=== PATIENT | female | born 1985 | race Caucasian/White ===

== ENCOUNTER 2018-12-22 00:56 | Emergency (ER) | payer MEDICAID ==
[~2018-12-22] VITALS: Ht 167.6 cm; Wt 45.4 kg
[2018-12-22 01:00] VITALS: BP_SYST 99
--- NOTE | 2018-12-22 01:00 | NUR ---
Patient to ER bed 5 to gown for evaluation. Side rails up. Report given to EDUARDO SANFORD.
--- NOTE | 2018-12-22 01:01 | NUR ---
Pt arrives with a wooden walking stick. Security notified and stick removed from pt.
--- NOTE | 2018-12-22 01:02 | NUR ---
Pt arrived via s ambulance c/o toothache,pt yelling and crying upon arrival asking for pain medicine,Pt came to nursing station and yelling staff,security called.Pt went back to bed and cont yelling and asking for pain medicine.Pt refused to answer any question and cont yelling .Unable to get any medical hx and allergy.Dr Montgomery notified.
--- NOTE | 2018-12-22 01:07 | NUR ---
Pt states that she's going home. Walking stick given back to pt by security. Pt then goes into ER 1 striking the curtain with the walking stick, nearly hitting the pt occupying the bed. Pt screaming "I need fucking pain relief now!" Pt also strikes nearby phlebotomy cart breaking 5 plastic trays on the cart. Pt removed from ER by security to hallway outside of ER near hospital entrance. Pt drops walking stick on floor. [employer] called.
--- NOTE | 2018-12-22 01:17 | NUR ---
Police officers from [facility] arrive. Situation explained to officers.
--- NOTE | 2018-12-22 01:26 | NUR ---
Pt LWBS in c/o peace officers.
== END 2018-12-22 01:26 | disposition left against medical advice (07) ==
LOC: SED 00:56
DX: K08.89 Other specified disorders of teeth and supporting structures (principal); Z53.21 Procedure and treatment not carried out due to patient leaving prior to being seen by health care provider

== ENCOUNTER 2019-03-05 20:09 | Emergency (ER) | payer MEDICAID ==
[~2019-03-05] VITALS: Ht 167.6 cm; Wt 45.4 kg
--- NOTE | 2019-03-05 20:09 | NUR ---
Patient to ER bed 03 to gown for evaluation. Side rails up. Report given to Phyllis SANFORD.
[2019-03-05 20:15] VITALS: BP_SYST 104
--- NOTE | 2019-03-05 20:15 | NUR ---
Pt AAOx4 BIB BLS c/o 12/17 L hip pain radiating to L shoulder x 3 days r/t hitting hip on bus bench. Pt able to ambulate with steady gait, no deformities/leg shortening present. No other injuries/complaints per pt/noted. Will continue to monitor.
--- NOTE | 2019-03-05 20:57 | NUR ---
ER Dr. Singletary at bedside examining patient.
[2019-03-05] MEDS ORDERED: KETOROLAC TROMETHAMINE 30 MG VIAL IM ONE (21:15)
--- NOTE | 2019-03-05 21:40 | NUR ---
PT denies toradol shot, ER made aware.
[2019-03-05] MEDS ORDERED: IBUPROFEN 400 MG TABLET PO ONE (21:45)
--- NOTE | 2019-03-05 22:15 | NUR ---
Medication was given, pt tolerated well. No adverse reaction, will continue to monitor.
--- NOTE | 2019-03-05 23:38 | NUR ---
PT given food, weather appropriate clothes, offered a ride and homeless packet.
[2019-03-05 23:45] VITALS: BP_SYST 104
--- NOTE | 2019-03-05 23:45 | NUR ---
Patient given written and verbal discharge instructions and verbalizes understanding. ER MD Dr. Singletary discussed with patient the results and treatment provided. Patient in stable condition. ID arm band removed. Rx of motrin given. Patient educated on pain management and to follow up with PMD. Pain Scale 0/10. Opportunity for questions provided and answered. Medication side effect fact sheet provided.
== END 2019-03-05 23:45 | disposition home or self-care (01) ==
LOC: SED 20:09
DX: M25.552 Pain in left hip (principal); G89.29 Other chronic pain; M54.5 Low back pain; F12.90 Cannabis use, unspecified, uncomplicated
CPT/HCPCS: 72170; 73502; 81025; 96372; 99283; J1885

== ENCOUNTER 2020-01-27 10:43 | Emergency (ER) | payer MEDICAID ==
[~2020-01-27] VITALS: Ht 167.6 cm; Wt 45.4 kg
--- NOTE | 2020-01-27 10:47 | NUR ---
Patient to ER bed 04 to gown for evaluation. Side rails up.
[2020-01-27 10:48] VITALS: BP_SYST 106
--- NOTE | 2020-01-27 10:50 | NUR ---
Patient presented to ER C/O weakness. Patient A&Ox4, BIB BLS, ambulatory, afebrile, skin pink & warm, denies pain, denies N/V/D. Patient states she has fatigue and weakness today.
--- NOTE | 2020-01-27 10:52 | NUR ---
ER Dr. Hernández at bedside examining patient.
--- NOTE | 2020-01-27 10:52 | NUR ---
Dr Hernández evaluating patient at bedside
[2020-01-27] MEDS ORDERED: NACL 0.9% 1,000 ML IV ONE (11:00)
[2020-01-27 11:21] LABS: BASOPHILS # (AUTO) 0.1 K/uL (0.0-0.2); EOSINOPHILS # (AUTO) 0.1 K/uL (0.0-0.4); EOSINOPHILS % (AUTO) 1.8 % (0.0-4.0); HEMATOCRIT 36.3 % (36-48); HEMOGLOBIN 11.8 g/dL (12.0-16.0); LYMPHOCYTES # (AUTO) 1.3 K/uL (1.0-5.5); MEAN CORPUSCULAR HEMOGLOBIN 29 pg (27-31); MEAN CORPUSCULAR HGB CONC 32 % (32-36); MEAN CORPUSCULAR VOLUME 91 fL (79.0-98.0); MONOCYTES # (AUTO) 0.4 K/uL (0.0-1.0); MONOCYTES % (AUTO) 6.1 % (1.7-9.3); NEUTROPHILS % (AUTO) 69.1 % (40.0-70.0); PLATELET COUNT (AUTO) 339 K/uL (130-430); RED CELL DISTRIBUTION WIDTH 13.2 % (9.0-15.0); WHITE BLOOD COUNT (AUTO) 5.8 K/uL (4.8-10.8)
[2020-01-27 11:24] LABS: CREATININE 0.67 mg/dL (0.55-1.30); POTASSIUM 3.5 mmol/L (3.5-5.1)
[2020-01-27 11:38] LABS: ALBUMIN 3.4 g/dL (3.4-4.8); TOTAL BILIRUBIN 0.4 mg/dL (0.0-1.0)
[2020-01-27 12:22] VITALS: BP_SYST 108
--- NOTE | 2020-01-27 12:24 | NUR ---
Patient given written and verbal discharge instructions and verbalizes understanding. ER MD discussed with patient the results and treatment provided. Patient in stable condition. ID arm band removed. IV catheter removed intact and dressing applied, no active bleeding. Patient educated on pain management and to follow up with PMD. Pain Scale . Opportunity for questions provided and answered. Medication side effect fact sheet provided.
== END 2020-01-27 12:24 | disposition home or self-care (01) ==
LOC: SED 10:43
DX: E86.0 Dehydration (principal); F17.200 Nicotine dependence, unspecified, uncomplicated
CPT/HCPCS: 36415; 80053; 85025; 96360; 99283; J7030

== ENCOUNTER 2020-01-28 13:41 | Emergency (ER) | payer MEDICAID ==
[~2020-01-28] VITALS: Ht 165.1 cm; Wt 52.2 kg
[2020-01-28 13:45] VITALS: BP_SYST 105
[2020-01-28] MEDS: NACL 0.9% 1,000 ML IV ONE (14:10)
[2020-01-28 15:18] VITALS: BP_SYST 105
== END 2020-01-28 15:15 | disposition home or self-care (01) ==
LOC: SED 13:41
DX: R42 Dizziness and giddiness (principal); F17.200 Nicotine dependence, unspecified, uncomplicated; F12.90 Cannabis use, unspecified, uncomplicated
CPT/HCPCS: 81002; 81025; 96360; 99283; J7030

== ENCOUNTER 2020-02-03 14:50 | Emergency (ER) | payer MEDICAID ==
[~2020-02-03] VITALS: Ht 167.6 cm; Wt 45.4 kg
[2020-02-03 14:53] VITALS: BP_SYST 101
[2020-02-03] MEDS: IBUPROFEN 400 MG TABLET PO ONE (15:34)
[2020-02-03 16:45] VITALS: BP_SYST 100
== END 2020-02-03 16:50 | disposition home or self-care (01) ==
LOC: SED 14:50
DX: R53.1 Weakness (principal); R51 Headache; F31.9 Bipolar disorder, unspecified; F12.90 Cannabis use, unspecified, uncomplicated
CPT/HCPCS: 99283

== ENCOUNTER 2020-02-04 09:16 | Emergency (ER) | payer MEDICAID ==
[~2020-02-04] VITALS: Ht 167.6 cm; Wt 45.4 kg
[2020-02-04 09:26] VITALS: BP_SYST 115
[2020-02-04 09:54] VITALS: BP_SYST 115
== END 2020-02-04 09:50 | disposition home or self-care (01) ==
LOC: SED 09:16
DX: H92.03 Otalgia, bilateral (principal); K08.89 Other specified disorders of teeth and supporting structures; F31.9 Bipolar disorder, unspecified; F20.9 Schizophrenia, unspecified
CPT/HCPCS: 99282

== ENCOUNTER 2020-03-03 14:36 | Emergency (ER) | payer MEDICAID ==
[~2020-03-03] VITALS: Ht 162.6 cm; Wt 45.4 kg
[2020-03-03 14:44] VITALS: BP_SYST 108
--- NOTE | 2020-03-03 14:45 | NUR ---
Patient to ER bed 3 to gown for evaluation. Side rails up. Report given to MARQUISE SANFORD.
--- NOTE | 2020-03-03 14:46 | NUR ---
Patient presented to ER C/O weakness. Patient BIB BLS AAOx4, afebrile, skin warm and pink, pain 6/10, denies N/V/D. Patient states she has weakness x2 hours.
--- NOTE | 2020-03-03 14:50 | NUR ---
NORTH Dunaway at bedside examining patient.
[2020-03-03 15:19] LABS: BASOPHILS # (AUTO) 0.1 K/uL (0.0-0.2); BASOPHILS % (AUTO) 1.1 % (0.0-2.0); EOSINOPHILS # (AUTO) 0.1 K/uL (0.0-0.4); EOSINOPHILS % (AUTO) 1.8 % (0.0-4.0); HEMATOCRIT 35.8 % (36-48); LYMPHOCYTES # (AUTO) 1.4 K/uL (1.0-5.5); LYMPHOCYTES % (AUTO) 21.1 % (20.5-51.5); MEAN CORPUSCULAR HEMOGLOBIN 31 pg (27-31); MEAN CORPUSCULAR HGB CONC 34 % (32-36); MEAN CORPUSCULAR VOLUME 91 fL (79.0-98.0); MONOCYTES # (AUTO) 0.4 K/uL (0.0-1.0); MONOCYTES % (AUTO) 5.8 % (1.7-9.3); NEUTROPHILS # (AUTO) 4.6 K/uL (1.8-7.7); NEUTROPHILS % (AUTO) 70.2 % (40.0-70.0); PLATELET COUNT (AUTO) 283 K/uL (130-430); RED BLOOD CELL COUNT(AUTO) 3.94 MIL/uL (4.2-6.2); RED CELL DISTRIBUTION WIDTH 13.4 % (9.0-15.0); WHITE BLOOD COUNT (AUTO) 6.5 K/uL (4.8-10.8)
[2020-03-03] MEDS: NACL 0.9% 1,000 ML IV ONE (15:19)
[2020-03-03] MEDS: ACETAMINOPHEN 500 MG TABLET PO ONE (15:20)
--- NOTE | 2020-03-03 15:20 | NUR ---
PT PROVIDED WITH URINE CUP, ABLE TO VOID. SPECIMEN SENT TO LAB
--- NOTE | 2020-03-03 15:20 | NUR ---
PT PRESENTS FROM HOME WITH C/O FEELING DIZZY AND WEAK. SHE REPORTS A HX OF ARTHRITIS WITH PAIN IN HER LOWER BACK AND RIGHT LEG. AAOX4, V/S STABLE
--- NOTE | 2020-03-03 15:20 | NUR ---
PT MEDICATED FOR PAIN WITH TYLENOL PER MD ORDER.
[2020-03-03] MEDS ORDERED: ACETAMINOPHEN 500 MG TABLET ONE (15:30)
--- NOTE | 2020-03-03 15:30 | NUR ---
XRAY AT THE BEDSIDE
[2020-03-03 15:38] LABS: CALCIUM 8.6 mg/dL (8.4-11.0); CREATININE 0.61 mg/dL (0.55-1.30); POTASSIUM 3.7 mmol/L (3.5-5.1)
[2020-03-03 15:44] LABS: ALBUMIN 3.6 g/dL (3.4-4.8); TOTAL BILIRUBIN 0.4 mg/dL (0.0-1.0)
[2020-03-03 16:00] LABS: BILIRUBIN,URINE NEGATIVE (NEGATIVE); BLOOD, URINE NEGATIVE (NEGATIVE); CLARITY/URINE CLEAR (CLEAR); COLOR,URINE YELLOW (YELLOW); GLUCOSE,URINE NEGATIVE (NEGATIVE); KETONES,URINE NEGATIVE (NEGATIVE); LEUKOCYTE ESTERASE ,URINE NEGATIVE (NEGATIVE); NITRITE, URINE NEGATIVE (NEGATIVE); PH,URINE 7.5 (5.0-8.0); PROTEIN URINE NEGATIVE (NEGATIVE); UROBILINOGEN,URINE 0.2 (0.2-1.0)
[2020-03-03 16:10] VITALS: BP_SYST 110
--- NOTE | 2020-03-03 16:10 | NUR ---
Patient given written and verbal discharge instructions and verbalizes understanding. ER MD discussed with patient the results and treatment provided. Patient in stable condition. ID arm band removed. NO Rx given. Patient educated on pain management and to follow up with PMD. Pain Scale 3/10. Opportunity for questions provided and answered. Medication side effect fact sheet provided.
== END 2020-03-03 16:10 | disposition home or self-care (01) ==
LOC: SED 14:36
DX: T67.5XXA Heat exhaustion, unspecified, initial encounter (principal); X58.XXXA Exposure to other specified factors, initial encounter; Y93.89 Activity, other specified; Y92.89 Other specified places as the place of occurrence of the external cause; Y99.8 Other external cause status
CPT/HCPCS: 36415; 71045; 80053; 81003; 85025; 96360; 99284; J7030

== ENCOUNTER 2020-03-19 09:29 | Emergency (ER) | payer MEDICAID, SELFPAY ==
[~2020-03-19] VITALS: Ht 162.6 cm; Wt 59.0 kg
--- NOTE | 2020-03-19 09:37 | NUR ---
Patient to ER bed 05 to gown for evaluation. Side rails up.
[2020-03-19 09:38] VITALS: BP_SYST 105
--- NOTE | 2020-03-19 09:40 | NUR ---
pt arrives via BLS d/t increasing abd pain and diarrhea x 1 wk. Pt is a poor historian d/t psychiatric problems. pt denies fever, CP.
--- NOTE | 2020-03-19 09:42 | NUR ---
ER at bedside examining patient.
--- NOTE | 2020-03-19 09:48 | NUR ---
lab at the bedside
--- NOTE | 2020-03-19 09:54 | NUR ---
UA collected and sent to the lab
[2020-03-19 10:02] LABS: BASOPHILS # (AUTO) 0.1 K/uL (0.0-0.2); BASOPHILS % (AUTO) 1.2 % (0.0-2.0); EOSINOPHILS # (AUTO) 0.2 K/uL (0.0-0.4); EOSINOPHILS % (AUTO) 3.7 % (0.0-4.0); HEMATOCRIT 38.7 % (36-48); LYMPHOCYTES # (AUTO) 1.3 K/uL (1.0-5.5); LYMPHOCYTES % (AUTO) 25.5 % (20.5-51.5); MEAN CORPUSCULAR HEMOGLOBIN 30 pg (27-31); MEAN CORPUSCULAR HGB CONC 34 % (32-36); MEAN CORPUSCULAR VOLUME 90 fL (79.0-98.0); MONOCYTES # (AUTO) 0.3 K/uL (0.0-1.0); MONOCYTES % (AUTO) 6.2 % (1.7-9.3); NEUTROPHILS # (AUTO) 3.2 K/uL (1.8-7.7); NEUTROPHILS % (AUTO) 63.4 % (40.0-70.0); PLATELET COUNT (AUTO) 299 K/uL (130-430); RED BLOOD CELL COUNT(AUTO) 4.29 MIL/uL (4.2-6.2); RED CELL DISTRIBUTION WIDTH 13.3 % (9.0-15.0); WHITE BLOOD COUNT (AUTO) 5.1 K/uL (4.8-10.8)
--- NOTE | 2020-03-19 10:10 | NUR ---
Patient transported to radiology via , accompanied by unit aide tech.
[2020-03-19 10:14] LABS: BILIRUBIN,URINE NEGATIVE (NEGATIVE); BLOOD, URINE 2+ (NEGATIVE); COLOR,URINE YELLOW (YELLOW); GLUCOSE,URINE NEGATIVE (NEGATIVE); KETONES,URINE NEGATIVE (NEGATIVE); LEUKOCYTE ESTERASE ,URINE NEGATIVE (NEGATIVE); NITRITE, URINE NEGATIVE (NEGATIVE); PH,URINE 8.5 (5.0-8.0); PROTEIN URINE NEGATIVE (NEGATIVE); UROBILINOGEN,URINE 0.2 (0.2-1.0)
[2020-03-19 10:14] LABS: CALCIUM 9.1 mg/dL (8.4-11.0); CREATININE 0.58 mg/dL (0.55-1.30)
[2020-03-19 10:16] LABS: CLARITY/URINE SLIGHTLY CLOUDY (CLEAR)
[2020-03-19 10:19] LABS: ALBUMIN 3.9 g/dL (3.4-4.8); TOTAL BILIRUBIN 0.5 mg/dL (0.0-1.0)
[2020-03-19 10:20] LABS: PROTHROMBIN TIME 9.9 SECS (9.5-12.5)
--- NOTE | 2020-03-19 10:27 | NUR ---
pt returned from CT
[2020-03-19 10:30] LABS: BACTERIA,URINE FEW /HPF (None Seen); WBC,URINE 0-3 /HPF (0-3)
--- NOTE | 2020-03-19 12:01 | NUR ---
Homeless packet and meal provided. Pt has adequate clothing. Pt refused transportation
[2020-03-19 12:03] VITALS: BP_SYST 105
--- NOTE | 2020-03-19 12:04 | NUR ---
Patient given written and verbal discharge instructions and verbalizes understanding. ER MD discussed with patient the results and treatment provided. Patient in stable condition. ID arm band removed. Rx of Lomotil given. Patient educated on pain management and to follow up with PMD. Pain Scale 0/10. Opportunity for questions provided and answered. Medication side effect fact sheet provided.
== END 2020-03-19 12:04 | disposition home or self-care (01) ==
LOC: SED 09:29
DX: R19.7 Diarrhea, unspecified (principal)
CPT/HCPCS: 36415; 80053; 81000-TC; 81025; 82150-TC; 83605; 83615-TC; 83690-TC; 84703; 85025; 85610-TC; 85730-TC; 99284

== ENCOUNTER 2020-03-22 12:26 | Emergency (ER) | payer MEDICAID, SELFPAY ==
[~2020-03-22] VITALS: Ht 167.6 cm; Wt 49.9 kg
[2020-03-22 12:30] VITALS: BP_SYST 131
[2020-03-22 14:48] VITALS: BP_SYST 118
== END 2020-03-22 14:40 | disposition home or self-care (01) ==
LOC: SED 12:26
DX: S01.81XA Laceration without foreign body of other part of head, initial encounter (principal); F20.9 Schizophrenia, unspecified; F31.9 Bipolar disorder, unspecified; Y04.2XXA Assault by strike against or bumped into by another person, initial encounter; Y93.89 Activity, other specified; Y92.89 Other specified places as the place of occurrence of the external cause; Y99.8 Other external cause status
CPT/HCPCS: 99283

== ENCOUNTER 2020-04-02 08:48 | Emergency (ER) | payer MEDICAID ==
[~2020-04-02] VITALS: Ht 162.6 cm; Wt 47.6 kg
[2020-04-02 08:49] VITALS: BP_SYST 109
--- NOTE | 2020-04-02 08:50 | NUR ---
Patient to H 1 to gown for evaluation. Side rails up.
--- NOTE | 2020-04-02 08:52 | NUR ---
pt bib deputy for med clear to ok to book. Pt banged her head on the back of a coping machine assembler car, and sustained a small lac to the forehead.
--- NOTE | 2020-04-02 08:55 | NUR ---
ER at bedside examining patient.
--- NOTE | 2020-04-02 09:04 | NUR ---
Patient given written and verbal discharge instructions and verbalizes understanding. ER MD discussed with patient the results and treatment provided. Patient in stable condition. ID arm band removed. Patient educated on pain management and to follow up with PMD. Pain Scale 0/10. Opportunity for questions provided and answered. Medication side effect fact sheet provided.
[2020-04-02 09:06] VITALS: BP_SYST 109
== END 2020-04-02 09:04 ==
LOC: SED 08:48
DX: R51.9 Headache, unspecified (principal); F20.9 Schizophrenia, unspecified
CPT/HCPCS: 99283

== ENCOUNTER 2020-04-04 09:08 | Emergency (ER) | payer MEDICAID ==
[~2020-04-04] VITALS: Ht 162.6 cm; Wt 45.4 kg
[2020-04-04 09:30] VITALS: BP_SYST 148
--- NOTE | 2020-04-04 09:30 | NUR ---
Patient to ER bed 5 to gown for evaluation. Side rails up. Report given to CLARIBEL Cabrera.
--- NOTE | 2020-04-04 09:32 | NUR ---
Patient arrived in the ED c/o suicidal ideation. Denied any chest pain or shortness of breath. Denied any fevers, chills, nausea or vomiting. Patient is alert and oriented x2, respirations even and unlabored, speaking in full sentences, and ambulating with a steady gait. VSS, pain level 0/10. Informed of the approximate wait time. Instructed to notify ED staff for any changes in condition or worsening of symptoms while waiting to be seen by an ED provider. Patient verbalized understanding.
--- NOTE | 2020-04-04 09:35 | NUR ---
ER Dr. Mejia at bedside examining patient.
[2020-04-04] MEDS ORDERED: ALPRAZolam 0.25 MG TABLET PO ONE (09:45)
--- NOTE | 2020-04-04 09:54 | NUR ---
Personal belonging's lits done. Security at bedside for wanding.
--- NOTE | 2020-04-04 10:00 | NUR ---
cryptographic technician at bedside collecting blood specimen as ordered by Dr. Travis Mejia. Patient tolerated the procedure well.
--- NOTE | 2020-04-04 10:08 | NUR ---
Patient ambulated to the bathroom with a steady gait. Urine specimen collected as ordered by Dr. Travis Mejia.
[2020-04-04 10:12] LABS: BASOPHILS # (AUTO) 0.1 K/uL (0.0-0.2); BASOPHILS % (AUTO) 1.1 % (0.0-2.0); EOSINOPHILS # (AUTO) 0.2 K/uL (0.0-0.4); EOSINOPHILS % (AUTO) 3.3 % (0.0-4.0); HEMATOCRIT 39.4 % (36-48); HEMOGLOBIN 13.2 g/dL (12.0-16.0); LYMPHOCYTES # (AUTO) 1.6 K/uL (1.0-5.5); LYMPHOCYTES % (AUTO) 24.9 % (20.5-51.5); MEAN CORPUSCULAR HEMOGLOBIN 31 pg (27-31); MEAN CORPUSCULAR HGB CONC 34 % (32-36); MEAN CORPUSCULAR VOLUME 91 fL (79.0-98.0); MONOCYTES # (AUTO) 0.4 K/uL (0.0-1.0); MONOCYTES % (AUTO) 6.1 % (1.7-9.3); NEUTROPHILS # (AUTO) 4.1 K/uL (1.8-7.7); NEUTROPHILS % (AUTO) 64.6 % (40.0-70.0); PLATELET COUNT (AUTO) 294 K/uL (130-430); RED BLOOD CELL COUNT(AUTO) 4.35 MIL/uL (4.2-6.2); RED CELL DISTRIBUTION WIDTH 13.3 % (9.0-15.0); WHITE BLOOD COUNT (AUTO) 6.3 K/uL (4.8-10.8)
--- NOTE | 2020-04-04 10:12 | NUR ---
Patient refused Xanax. aware.
[2020-04-04 10:33] LABS: ANION GAP 5 (5-15); CALCIUM 9.1 mg/dL (8.4-11.0); CHLORIDE 103 mmol/L (98-107); CREATININE 0.56 mg/dL (0.55-1.30); GLUCOSE 89 mg/dL (70-99); POTASSIUM 4.1 mmol/L (3.5-5.1); SODIUM SERUM 139 mmol/L (136-145); UREA NITROGEN, BLOOD 15 mg/dL (8-21)
[2020-04-04 10:35] LABS: GFR AFRICAN AMERICAN 158 mL/min (>90)
[2020-04-04 10:39] LABS: ALANINE AMINOTRANSFERASE 33 U/L (12-78); ALBUMIN 4.1 g/dL (3.4-4.8); ASPARTATE AMINOTRANSFERASE 17 U/L (10-37); TOTAL BILIRUBIN 0.5 mg/dL (0.0-1.0)
[2020-04-04 10:43] LABS: BARBITURATE, URINE NEGATIVE (NEG <=200); BENZODIAZEPINE, URINE NEGATIVE (NEG <=150); CANNABINOID, URINE POSITIVE (NEG <=50); COCAINE, URINE NEGATIVE (NEG <=150); METHAMPHETAMINES SCREEN,URINE NEGATIVE (NEG <=500); OPIATE, URINE NEGATIVE (NEG <=100); PHENCYCLIDINE SCREEN,URINE NEGATIVE (NEG <=25); UR TRICYCLIC ANTIDEPRESSANTS NEGATIVE (NEG <=300); URINE AMPHETAMINE NEGATIVE (NEG <=500); URINE METHADONE NEGATIVE (NEG <=200); URINE OXYCODONE SCREEN NEGATIVE (NEG <=100); URINE PROPOXYPHENE SCREEN NEGATIVE (NEG <=300)
[2020-04-04 10:45] LABS: ACETAMINOPHEN < 1 ug/mL (1-30); ALCOHOL, BLOOD < 3 mg/dL (<10)
[2020-04-04] MEDS ORDERED: DIPHENHYDRAMINE INJ 50 MG/ML VIAL IM ONE (11:00)
[2020-04-04] MEDS ORDERED: LORazepam 2 MG/ML VIAL IM ONE (11:00)
[2020-04-04] MEDS ORDERED: HALOPERIDOL LACTATE 5 MG/ML VIAL IM ONE (11:00)
--- NOTE | 2020-04-04 11:10 | NUR ---
Administered Haldol+Benadryl+Ativan IM as ordered by Dr. Travis Mejia. Patient tolerated the medications well. See eMAR for details.
--- NOTE | 2020-04-04 11:12 | NUR ---
Swabbed for Covid. Specimen dropped off at the lab.
[2020-04-04] MEDS ORDERED: LITHIUM CARBONATE 300 MG TABLET.SA PO SCH (12:15)
[2020-04-04] MEDS ORDERED: DIVALPROEX SODIUM 250 MG TABLET(DEPAKOTE) PO ONE (12:15)
[2020-04-04] MEDS ORDERED: QUEtiapine FUMARATE 25 MG TABLET PO SCH (12:15)
[2020-04-04] MEDS ORDERED: busPIRone HCL 5 MG TABLET PO SCH (12:15)
--- NOTE | 2020-04-04 12:29 | NUR ---
PET TEAM ON SITE TO EVALUATE PATIENT.
[2020-04-04] MEDS ORDERED: busPIRone HCL 5 MG TABLET PO ONE (12:45)
[2020-04-04] MEDS ORDERED: LITHIUM CARBONATE 300 MG TABLET.SA PO ONE (12:45)
[2020-04-04] MEDS ORDERED: QUEtiapine FUMARATE 25 MG TABLET PO ONE (12:45)
--- NOTE | 2020-04-04 13:02 | NUR ---
Patient refused to take her prescribed meds at this time.
[2020-04-04 14:29] VITALS: BP_SYST 148
--- NOTE | 2020-04-04 14:30 | NUR ---
Patient given written and verbal discharge instructions and verbalizes understanding. ER MD discussed with patient the results and treatment provided. Patient in stable condition. ID arm band removed. Rx of SEROQUEL given. Patient educated on pain management and to follow up with PMD. Pain Scale 0/10. Opportunity for questions provided and answered. Medication side effect fact sheet provided.
--- NOTE | 2020-04-04 14:58 | NUR ---
Unit Aid: follow up from notification received from ED BUSINESS PROFESSOR was following up on notes re. advised 5150 from tele pscy and PET team was on site. BUSINESS PROFESSOR called Rn, but phone/power was cut off. BUSINESS PROFESSOR walked over to discuss case with Rn. who stated PET evaluated pt. and did not see a reason for a 5150. BUSINESS PROFESSOR thanked him for update and will remain available as needed.
== END 2020-04-04 14:30 | disposition home or self-care (01) ==
LOC: SED 09:08
DX: F29 Unspecified psychosis not due to a substance or known physiological condition (principal); F20.9 Schizophrenia, unspecified; F31.9 Bipolar disorder, unspecified
CPT/HCPCS: 36415; 80053; 80307; 82550; 84703; 85025; 96372; 99285; G0480; G0481; G0482; J1200; J1630; J2060

== ENCOUNTER 2020-04-24 19:21 | Emergency (ER) | payer MEDICAID ==
[~2020-04-24] VITALS: Ht 167.6 cm; Wt 45.4 kg
[2020-04-24 19:32] VITALS: BP_SYST 100
[2020-04-24] MEDS ORDERED: KETOROLAC TROMETHAMINE 30 MG VIAL IM ONE (20:00)
[2020-04-24 21:59] VITALS: BP_SYST 100
== END 2020-04-24 21:59 | disposition home or self-care (01) ==
LOC: SED 19:21
DX: S93.402A Sprain of unspecified ligament of left ankle, initial encounter (principal); X50.1XXA Overexertion from prolonged static or awkward postures, initial encounter; Y93.89 Activity, other specified; Y92.89 Other specified places as the place of occurrence of the external cause; Y99.8 Other external cause status
CPT/HCPCS: 73610; 96372; 99283; J1885

== ENCOUNTER 2020-05-06 07:26 | Emergency (ER) | payer MEDICAID ==
[~2020-05-06] VITALS: Ht 165.1 cm; Wt 45.4 kg
[2020-05-06 07:26] VITALS: BP_SYST 118
--- NOTE | 2020-05-06 07:26 | NUR ---
placed in bed 3, triaged at bedside
--- NOTE | 2020-05-06 07:27 | NUR ---
Patient brought in from the street via EMS for nausea and vomiting x1 day.
--- NOTE | 2020-05-06 07:40 | NUR ---
ER Dr. Yi at bedside examining patient.
[2020-05-06 07:56] LABS: BASOPHILS # (AUTO) 0.1 K/uL (0.0-0.2); BASOPHILS % (AUTO) 0.7 % (0.0-2.0); EOSINOPHILS % (AUTO) 0.5 % (0.0-4.0); HEMATOCRIT 46.3 % (36-48); HEMOGLOBIN 15.5 g/dL (12.0-16.0); LYMPHOCYTES # (AUTO) 1.7 K/uL (1.0-5.5); LYMPHOCYTES % (AUTO) 22.6 % (20.5-51.5); MEAN CORPUSCULAR HEMOGLOBIN 31 pg (27-31); MEAN CORPUSCULAR HGB CONC 34 % (32-36); MEAN CORPUSCULAR VOLUME 92 fL (79.0-98.0); MONOCYTES # (AUTO) 0.4 K/uL (0.0-1.0); MONOCYTES % (AUTO) 4.7 % (1.7-9.3); NEUTROPHILS # (AUTO) 5.4 K/uL (1.8-7.7); NEUTROPHILS % (AUTO) 71.5 % (40.0-70.0); PLATELET COUNT (AUTO) 390 K/uL (130-430); RED BLOOD CELL COUNT(AUTO) 5.03 MIL/uL (4.2-6.2); RED CELL DISTRIBUTION WIDTH 13.2 % (9.0-15.0); WHITE BLOOD COUNT (AUTO) 7.5 K/uL (4.8-10.8)
[2020-05-06 07:59] LABS: BILIRUBIN,URINE 1+ (NEGATIVE); BLOOD, URINE 3+ (NEGATIVE); CLARITY/URINE CLOUDY (CLEAR); COLOR,URINE YELLOW (YELLOW); GLUCOSE,URINE NEGATIVE (NEGATIVE); KETONES,URINE 1+ (NEGATIVE); LEUKOCYTE ESTERASE ,URINE NEGATIVE (NEGATIVE); NITRITE, URINE NEGATIVE (NEGATIVE); PH,URINE 5.5 (5.0-8.0); PROTEIN URINE 2+ (NEGATIVE); UROBILINOGEN,URINE 0.2 (0.2-1.0)
[2020-05-06] MEDS ORDERED: NACL 0.9% 1,000 ML IV ONE (08:00)
[2020-05-06 08:10] LABS: ANION GAP 11 (5-15); CALCIUM 9.5 mg/dL (8.4-11.0); CHLORIDE 100 mmol/L (98-107); CREATININE 0.64 mg/dL (0.55-1.30); GLUCOSE 108 mg/dL (70-99); POTASSIUM 3.4 mmol/L (3.5-5.1); SODIUM SERUM 138 mmol/L (136-145); UREA NITROGEN, BLOOD 19 mg/dL (8-21)
[2020-05-06 08:13] LABS: GFR AFRICAN AMERICAN 136 mL/min (>90)
[2020-05-06 08:22] LABS: ALANINE AMINOTRANSFERASE 68 U/L (12-78); ALBUMIN 5.2 g/dL (3.4-4.8); ASPARTATE AMINOTRANSFERASE 45 U/L (10-37); TOTAL BILIRUBIN 0.9 mg/dL (0.0-1.0)
[2020-05-06 08:23] LABS: BACTERIA,URINE None Seen /HPF (None Seen); CALCIUM OXALATE CRYSTALS,UR None Seen /HPF (None Seen); CALCIUM PHOSPHATE CRYSTALS,UR None Seen /HPF (None Seen); RBC,URINE >100 /HPF (0-3); TRICHOMONAS,URINE None Seen /HPF (None Seen); WBC,URINE NONE SEEN /HPF (0-3); YEAST,URINE None Seen /HPF (None Seen)
[2020-05-06 08:23] LABS: ACETAMINOPHEN < 1 ug/mL (1-30); ALCOHOL, BLOOD < 3 mg/dL (<10)
[2020-05-06 08:34] LABS: BARBITURATE, URINE NEGATIVE (NEG <=200); BENZODIAZEPINE, URINE NEGATIVE (NEG <=150); CANNABINOID, URINE POSITIVE (NEG <=50); COCAINE, URINE NEGATIVE (NEG <=150); METHAMPHETAMINES SCREEN,URINE NEGATIVE (NEG <=500); OPIATE, URINE NEGATIVE (NEG <=100); PHENCYCLIDINE SCREEN,URINE NEGATIVE (NEG <=25); UR TRICYCLIC ANTIDEPRESSANTS NEGATIVE (NEG <=300); URINE AMPHETAMINE NEGATIVE (NEG <=500); URINE METHADONE NEGATIVE (NEG <=200); URINE OXYCODONE SCREEN NEGATIVE (NEG <=100); URINE PROPOXYPHENE SCREEN NEGATIVE (NEG <=300)
[2020-05-06] MEDS ORDERED: HYDROcodone/ACETAMIN 5-325 MG TAB (NORCO/ VICODIN) ONE (08:44)
[2020-05-06 08:53] LABS: FREE T4 (FREE THYROXINE) 1.1 ng/dL (0.6-1.6); THYROID STIMULATING HORMONE 1.76 uIu/mL (0.34-4.82)
[2020-05-06] MEDS ORDERED: SULFAMETHOXAZOLE/TRIMETHOPR DS 1 TABLET PO ONE (09:15)
[2020-05-06] MEDS ORDERED: ONDANSETRON 4 MG ODT TAB PO ONE (09:30)
[2020-05-06] MEDS ORDERED: ONDANSETRON 4 MG ODT TAB ONE (09:40)
--- NOTE | 2020-05-06 09:50 | NUR ---
Food tray provided.
[2020-05-06 09:58] VITALS: BP_SYST 118
--- NOTE | 2020-05-06 09:58 | NUR ---
Patient given written and verbal discharge instructions and verbalizes understanding. Given copies of tests performed during visit. Patient is awake, alert and oriented. Ambulatory with steady gait. Refuses offer of senior living placement. Given list of available shelters in surrounding areas. Given prescription for Bactrim DS and pyridium.
== END 2020-05-06 09:58 | disposition home or self-care (01) ==
LOC: SED 07:26
DX: R55 Syncope and collapse (principal); F12.90 Cannabis use, unspecified, uncomplicated
CPT/HCPCS: 36415; 71045; 74018; 80053; 80307; 81000; 81025; 84439; 84443; 85025; 93005; 96360; 99285; G0480; G0481; G0482; J7030; Q0162

== ENCOUNTER 2020-05-08 21:36 | Emergency (ER) | payer MEDICAID ==
[~2020-05-08] VITALS: Ht 167.6 cm; Wt 54.4 kg
[2020-05-08 21:41] VITALS: BP_SYST 99
--- NOTE | 2020-05-08 21:46 | NUR ---
Patient placed in waiting room.
--- NOTE | 2020-05-08 21:48 | NUR ---
Patient BIB by BLS/EMS. C/O left ankle pain x today. Per reported, patient tripped and fell, no LOC, left ankle pain, A/O,X4, left ankle pain, no bruise or wound, no deformity, vss.
--- NOTE | 2020-05-08 22:32 | NUR ---
Patient able to walk steady gait to restroom.
--- NOTE | 2020-05-08 23:23 | NUR ---
ER Dr. Singletary at bedside examining patient.
--- NOTE | 2020-05-08 23:47 | NUR ---
X-ray at bedside.
--- NOTE | 2020-05-09 00:15 | NUR ---
Patient given written and verbal discharge instructions and verbalizes understanding. DR. MAKSIM KAT MD discussed with patient the results and treatment provided. Patient in stable condition. ID arm band removed. IV catheter removed intact and dressing applied, no active bleeding. Rx of TYELENOL given. Patient educated on pain management and to follow up with PMD. Pain Scale 0/10. Opportunity for questions provided and answered. Medication side effect fact sheet provided. Pt offered food, blankets, and list of local shelters in the area.
== END 2020-05-09 00:14 | disposition home or self-care (01) ==
LOC: SED 21:36
DX: S93.692A Other sprain of left foot, initial encounter (principal); F19.10 Other psychoactive substance abuse, uncomplicated; X50.1XXA Overexertion from prolonged static or awkward postures, initial encounter; Y93.89 Activity, other specified; Y92.89 Other specified places as the place of occurrence of the external cause; Y99.8 Other external cause status
CPT/HCPCS: 99283

== ENCOUNTER 2020-05-30 15:31 | Emergency (ER) | payer MEDICAID ==
[~2020-05-30] VITALS: Ht 172.7 cm; Wt 53.5 kg
[2020-05-30 16:11] VITALS: BP_SYST 96
--- NOTE | 2020-05-30 16:15 | NUR ---
ALYSSA BLS from the streets, placed in ER WR.
--- NOTE | 2020-05-30 17:30 | NUR ---
LWBS at this time. Seen by admitting and security walking through parking lot. Ambulatory with steady gait.
== END 2020-05-30 17:30 | disposition left against medical advice (07) ==
LOC: SED 15:31
DX: Z53.21 Procedure and treatment not carried out due to patient leaving prior to being seen by health care provider (principal)

== ENCOUNTER 2020-07-04 23:19 | Emergency (ER) | payer MEDICAID ==
[~2020-07-04] VITALS: Ht 167.6 cm; Wt 40.8 kg
[2020-07-04 23:30] VITALS: BP_SYST 116
[2020-07-05 00:05] VITALS: BP_SYST 120
== END 2020-07-05 00:05 | disposition home or self-care (01) ==
LOC: SED 23:19
DX: S00.81XA Abrasion of other part of head, initial encounter (principal); Y08.89XA Assault by other specified means, initial encounter; Y93.89 Activity, other specified; Y92.89 Other specified places as the place of occurrence of the external cause; Y99.8 Other external cause status
CPT/HCPCS: 99283

== ENCOUNTER 2020-09-01 23:02 | Emergency (ER) | payer MEDICAID ==
[~2020-09-01] VITALS: Ht 167.6 cm; Wt 45.4 kg
[2020-09-01 23:29] VITALS: BP_SYST 112
[2020-09-01] MEDS ORDERED: ACETAMINOPHEN 500 MG TABLET PO ONE (23:30)
[2020-09-02 05:45] VITALS: BP_SYST 118
== END 2020-09-02 05:45 | disposition home or self-care (01) ==
LOC: SED 23:02
DX: S00.81XA Abrasion of other part of head, initial encounter (principal); W18.09XA Striking against other object with subsequent fall, initial encounter; Y93.89 Activity, other specified; Y92.89 Other specified places as the place of occurrence of the external cause; Y99.8 Other external cause status
CPT/HCPCS: 70450-TC; 76376; 82962; 93005; 99284

== ENCOUNTER 2020-10-11 19:28 | Emergency (ER) | payer MEDICAID ==
[~2020-10-11] VITALS: Ht 167.6 cm; Wt 45.4 kg
[2020-10-11 19:38] VITALS: BP_SYST 129
[2020-10-11] MEDS ORDERED: NEU300 PO (21:17)
[2020-10-11 21:50] VITALS: BP_SYST 131
== END 2020-10-11 21:50 | disposition home or self-care (01) ==
LOC: SED 19:28
DX: M54.31 Sciatica, right side (principal); F31.9 Bipolar disorder, unspecified; F20.9 Schizophrenia, unspecified
CPT/HCPCS: 99283

== ENCOUNTER 2020-10-18 14:22 | Emergency (ER) | payer MEDICAID ==
[~2020-10-18] VITALS: Ht 170.2 cm; Wt 40.8 kg
[~2020-10-18 14:22] MED LIST: NEU300 PO
[2020-10-18 14:33] VITALS: BP_SYST 148
--- NOTE | 2020-10-18 14:37 | NUR ---
Patient to ER bed 7 to gown for evaluation. Side rails up. Report given to CLARIBEL Rubio.
--- NOTE | 2020-10-18 14:42 | NUR ---
pt. arrived by self with c/o sciatica pain down right leg rates the pain 4/10, states smoked weed because the pain was an 8/10. here requesting gabapentin. chronic problem x 2 plus years.
[2020-10-18 15:01] VITALS: BP_SYST 148
== END 2020-10-18 15:00 | disposition left against medical advice (07) ==
LOC: SED 14:22
DX: M54.9 Dorsalgia, unspecified (principal); M54.31 Sciatica, right side; F31.9 Bipolar disorder, unspecified; F20.9 Schizophrenia, unspecified
CPT/HCPCS: 99281

== ENCOUNTER 2020-10-21 10:33 | Emergency (ER) | payer MEDICAID ==
[~2020-10-21] VITALS: Ht 167.6 cm; Wt 45.4 kg
[2020-10-21 10:33] VITALS: BP_SYST 101
[2020-10-21] MEDS ORDERED: NEU300 PO (10:59)
[2020-10-21 11:03] VITALS: BP_SYST 101
== END 2020-10-21 11:03 | disposition home or self-care (01) ==
LOC: SED 10:33
DX: M54.40 Lumbago with sciatica, unspecified side (principal); F31.9 Bipolar disorder, unspecified; F20.9 Schizophrenia, unspecified; Z79.899 Other long term (current) drug therapy; Z76.0 Encounter for issue of repeat prescription
CPT/HCPCS: 99281

== ENCOUNTER 2020-11-01 06:28 | Emergency (ER) | payer MEDICAID ==
[~2020-11-01] VITALS: Ht 167.6 cm; Wt 45.4 kg
[2020-11-01 06:28] VITALS: BP_SYST 119
--- NOTE | 2020-11-01 06:29 | NUR ---
Patient to ER bed 5 to gown for evaluation. Side rails up.
--- NOTE | 2020-11-01 06:29 | NUR ---
Patient BIB by BLS/EMS . C/O vomitting x 1 day. Per reported, patient had nausea and vomittting since 1800 PM yesterday. Hx PTSD, Anxiety. A/O,X4, N/V, denies abdominal pain.
[2020-11-01] MEDS ORDERED: ONDANSETRON 4 MG ODT TAB PO ONE (06:45)
[2020-11-01] MEDS ORDERED: ONDA-8 TL ×3 (07:02→07:09)
[2020-11-01] MEDS ORDERED: NEU100 PO ×2 (07:02)
--- NOTE | 2020-11-01 07:04 | NUR ---
Given report to Dann/CLARIBEL Hoyt.
[2020-11-01] MEDS ORDERED: NEU300 PO (07:09)
--- NOTE | 2020-11-01 07:26 | NUR ---
Patient given written and verbal discharge instructions and verbalizes understanding. ER MD discussed with patient the results and treatment provided. Patient in stable condition. ID arm band removed. Rx of ZOFRAN AND NEURONTIN given. Patient educated on pain management and to follow up with PMD. Pain Scale 0/10. Opportunity for questions provided and answered. Medication side effect fact sheet provided.
[2020-11-01 07:27] VITALS: BP_SYST 119
[2020-11-01] MEDS ORDERED: CIPR250T4 PO ×2 (20:04)
[2020-11-01] MEDS ORDERED: POTA20TA83 PO ×2 (20:04)
[2020-11-01] MEDS ORDERED: PRO40 PO ×2 (20:04)
== END 2020-11-01 07:27 | disposition home or self-care (01) ==
LOC: SED 06:28
DX: K29.00 Acute gastritis without bleeding (principal); F31.9 Bipolar disorder, unspecified; F20.9 Schizophrenia, unspecified; Z88.8 Allergy status to other drugs, medicaments and biological substances; Z79.899 Other long term (current) drug therapy
CPT/HCPCS: 81025; 99283; Q0162

== ENCOUNTER 2020-11-01 18:28 | Emergency (ER) | payer MEDICAID ==
[~2020-11-01] VITALS: Ht 167.6 cm; Wt 45.4 kg
[~2020-11-01 18:28] MED LIST changes: +NEU100 PO; +ONDA-8 TL
[2020-11-01 18:29] VITALS: BP_SYST 116
--- NOTE | 2020-11-01 18:29 | NUR ---
Patient to ER bed 5 to gown for evaluation. Side rails up. Report given to CLARIBEL Hoyt.
[2020-11-01] MEDS ORDERED: ONDANSETRON HCL 4 MG/2 ML VIAL ONE (18:44)
[2020-11-01] MEDS ORDERED: NACL 0.9% 1,000 ML IV ONE (18:45)
[2020-11-01] MEDS ORDERED: ONDANSETRON HCL 4 MG/2 ML VIAL IVP ONE (18:45)
--- NOTE | 2020-11-01 18:47 | NUR ---
PT BIB AMBULANCE FOR NAUSEA VOMITING AND DEHYDRATION. PT PICKED UP FROM A HIKING TRAIL. A&OX3. NO OTHER COMPLAINTS AT THIS TIME
--- NOTE | 2020-11-01 18:48 | NUR ---
ER Dr. VALDVIIA at bedside examining patient.
[2020-11-01 18:59] LABS: BASOPHILS # (AUTO) 0.1 K/uL (0.0-0.2); BASOPHILS % (AUTO) 0.4 % (0.0-2.0); EOSINOPHILS # (AUTO) 0.1 K/uL (0.0-0.4); EOSINOPHILS % (AUTO) 0.4 % (0.0-4.0); HEMATOCRIT 39.5 % (36-48); HEMOGLOBIN 13.1 g/dL (12.0-16.0); LYMPHOCYTES # (AUTO) 1.1 K/uL (1.0-5.5); LYMPHOCYTES % (AUTO) 7.5 % (20.5-51.5); MEAN CORPUSCULAR HEMOGLOBIN 31 pg (27-31); MEAN CORPUSCULAR HGB CONC 33 % (32-36); MEAN CORPUSCULAR VOLUME 92 fL (79.0-98.0); MONOCYTES # (AUTO) 0.4 K/uL (0.0-1.0); NEUTROPHILS # (AUTO) 12.9 K/uL (1.8-7.7); NEUTROPHILS % (AUTO) 88.7 % (40.0-70.0); PLATELET COUNT (AUTO) 388 K/uL (130-430); RED CELL DISTRIBUTION WIDTH 13.3 % (9.0-15.0); WHITE BLOOD COUNT (AUTO) 14.6 K/uL (4.8-10.8)
--- NOTE | 2020-11-01 19:19 | NUR ---
Report given to CLARIBEL Varghese for continuation of care.
--- NOTE | 2020-11-01 19:24 | NUR ---
Assumed care, received SBAR report from off coming RN. Pt laying in [place], no s/s of distress noted. Call light within reach, safety precautions in place.
[2020-11-01 19:35] LABS: CALCIUM 9.4 mg/dL (8.4-11.0); CREATININE 0.99 mg/dL (0.55-1.30); POTASSIUM 3.4 mmol/L (3.5-5.1)
[2020-11-01] MEDS ORDERED: PRO40 PO ×2 (20:04)
[2020-11-01] MEDS ORDERED: POTA20TA83 PO ×2 (20:04)
[2020-11-01] MEDS ORDERED: CIPR250T4 PO ×2 (20:04)
--- NOTE | 2020-11-01 20:28 | NUR ---
VSS no s/s of acute distress, Resting on gurney rails up
--- NOTE | 2020-11-01 21:00 | NUR ---
Dr. Rojas bedside for pt update
--- NOTE | 2020-11-01 21:14 | NUR ---
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
[2020-11-01 21:15] VITALS: BP_SYST 116
--- NOTE | 2020-11-01 21:15 | NUR ---
Patient given written and verbal discharge instructions and verbalizes understanding. ER MD discussed with patient the results and treatment provided. Patient in stable condition. ID arm band removed. IV catheter removed intact and dressing applied, no active bleeding. Patient educated on pain management and to follow up with PMD. Pain Scale 0/10 Opportunity for questions provided and answered.
== END 2020-11-01 21:15 | disposition home or self-care (01) ==
LOC: SED 18:28
DX: E86.0 Dehydration (principal); F12.90 Cannabis use, unspecified, uncomplicated; F31.9 Bipolar disorder, unspecified; F20.9 Schizophrenia, unspecified; Z88.8 Allergy status to other drugs, medicaments and biological substances; Z79.899 Other long term (current) drug therapy
CPT/HCPCS: 36415; 80048; 85025; 96361; 96374; 99283; J2405; J7030

== ENCOUNTER 2020-11-03 07:18 | Emergency (ER) | payer MEDICAID ==
[~2020-11-03] VITALS: Ht 175.3 cm; Wt 54.4 kg
[~2020-11-03 07:18] MED LIST changes: -NEU100 PO
[2020-11-03 07:22] VITALS: BP_SYST 133
[2020-11-03 07:40] VITALS: BP_SYST 133
== END 2020-11-03 07:40 | disposition home or self-care (01) ==
LOC: SED 07:18
DX: S90.821A Blister (nonthermal), right foot, initial encounter (principal); S90.822A Blister (nonthermal), left foot, initial encounter; F31.9 Bipolar disorder, unspecified; F20.9 Schizophrenia, unspecified; Z88.8 Allergy status to other drugs, medicaments and biological substances; X58.XXXA Exposure to other specified factors, initial encounter; Y93.89 Activity, other specified; Y92.89 Other specified places as the place of occurrence of the external cause; Y99.8 Other external cause status
CPT/HCPCS: 99283

== ENCOUNTER 2020-11-10 14:25 | Emergency (ER) | payer MEDICAID ==
[~2020-11-10] VITALS: Ht 154.9 cm; Wt 45.4 kg
[2020-11-10 14:26] VITALS: BP_SYST 109
[2020-11-10 15:04] VITALS: BP_SYST 109
== END 2020-11-10 15:01 | disposition home or self-care (01) ==
LOC: SED 14:25
DX: S90.851A Superficial foreign body, right foot, initial encounter (principal); F12.10 Cannabis abuse, uncomplicated; F31.9 Bipolar disorder, unspecified; F20.9 Schizophrenia, unspecified; Z88.8 Allergy status to other drugs, medicaments and biological substances; Z79.899 Other long term (current) drug therapy; Z76.0 Encounter for issue of repeat prescription; W45.8XXA Other foreign body or object entering through skin, initial encounter; Y93.89 Activity, other specified; Y92.89 Other specified places as the place of occurrence of the external cause; Y99.8 Other external cause status
CPT/HCPCS: 99284

== ENCOUNTER 2020-11-13 16:23 | Emergency (ER) | payer MEDICAID ==
[~2020-11-13] VITALS: Ht 162.6 cm; Wt 47.6 kg
[2020-11-13 16:25] VITALS: BP_SYST 107
[2020-11-13 16:51] LABS: BILIRUBIN,URINE NEGATIVE (NEGATIVE); BLOOD, URINE NEGATIVE (NEGATIVE); CLARITY/URINE CLEAR (CLEAR); COLOR,URINE YELLOW (YELLOW); GLUCOSE,URINE NEGATIVE (NEGATIVE); KETONES,URINE NEGATIVE (NEGATIVE); LEUKOCYTE ESTERASE ,URINE NEGATIVE (NEGATIVE); NITRITE, URINE NEGATIVE (NEGATIVE); PROTEIN URINE NEGATIVE (NEGATIVE); UROBILINOGEN,URINE 0.2 (0.2-1.0)
[2020-11-13 17:16] LABS: BASOPHILS # (AUTO) 0.1 K/uL (0.0-0.2); BASOPHILS % (AUTO) 0.9 % (0.0-2.0); EOSINOPHILS # (AUTO) 0.3 K/uL (0.0-0.4); EOSINOPHILS % (AUTO) 2.9 % (0.0-4.0); HEMATOCRIT 34.1 % (36-48); HEMOGLOBIN 11.5 g/dL (12.0-16.0); LYMPHOCYTES # (AUTO) 1.6 K/uL (1.0-5.5); LYMPHOCYTES % (AUTO) 18.7 % (20.5-51.5); MEAN CORPUSCULAR HEMOGLOBIN 31 pg (27-31); MEAN CORPUSCULAR HGB CONC 34 % (32-36); MEAN CORPUSCULAR VOLUME 93 fL (79.0-98.0); MONOCYTES # (AUTO) 0.4 K/uL (0.0-1.0); MONOCYTES % (AUTO) 4.2 % (1.7-9.3); NEUTROPHILS # (AUTO) 6.4 K/uL (1.8-7.7); NEUTROPHILS % (AUTO) 73.3 % (40.0-70.0); PLATELET COUNT (AUTO) 343 K/uL (130-430); RED BLOOD CELL COUNT(AUTO) 3.68 MIL/uL (4.2-6.2); RED CELL DISTRIBUTION WIDTH 13.1 % (9.0-15.0); WHITE BLOOD COUNT (AUTO) 8.7 K/uL (4.8-10.8)
[2020-11-13 17:22] LABS: BARBITURATE, URINE NEGATIVE (NEG <=200); BENZODIAZEPINE, URINE NEGATIVE (NEG <=150); CANNABINOID, URINE POSITIVE (NEG <=50); COCAINE, URINE NEGATIVE (NEG <=150); METHAMPHETAMINES SCREEN,URINE NEGATIVE (NEG <=500); OPIATE, URINE NEGATIVE (NEG <=100); PHENCYCLIDINE SCREEN,URINE NEGATIVE (NEG <=25); UR TRICYCLIC ANTIDEPRESSANTS NEGATIVE (NEG <=300); URINE AMPHETAMINE NEGATIVE (NEG <=500); URINE METHADONE NEGATIVE (NEG <=200); URINE OXYCODONE SCREEN NEGATIVE (NEG <=100); URINE PROPOXYPHENE SCREEN NEGATIVE (NEG <=300)
[2020-11-13 17:24] LABS: ANION GAP 6 (5-15); CALCIUM 8.8 mg/dL (8.4-11.0); CHLORIDE 106 mmol/L (98-107); CREATININE 0.97 mg/dL (0.55-1.30); GLUCOSE 99 mg/dL (70-99); POTASSIUM 3.3 mmol/L (3.5-5.1); SODIUM SERUM 142 mmol/L (136-145); UREA NITROGEN, BLOOD 29 mg/dL (8-21)
[2020-11-13 17:27] LABS: GFR AFRICAN AMERICAN 84 mL/min (>90)
[2020-11-13 17:30] LABS: ALANINE AMINOTRANSFERASE 39 U/L (12-78); ALBUMIN 3.3 g/dL (3.4-4.8); ASPARTATE AMINOTRANSFERASE 20 U/L (10-37); TOTAL BILIRUBIN 0.2 mg/dL (0.0-1.0)
[2020-11-13 17:32] LABS: ALCOHOL, BLOOD < 3 mg/dL (<10)
[2020-11-13 17:33] LABS: INR 0.9 (0.8-1.2); PROTHROMBIN TIME 9.5 SECS (9.5-12.5)
[2020-11-13 17:36] LABS: ACETONE, SERUM NEGATIVE (NEGATIVE)
[2020-11-13 17:52] VITALS: BP_SYST 112
== END 2020-11-13 17:54 | disposition home or self-care (01) ==
LOC: SED 16:23
DX: T67.5XXA Heat exhaustion, unspecified, initial encounter (principal); F31.9 Bipolar disorder, unspecified; F20.9 Schizophrenia, unspecified; Z88.8 Allergy status to other drugs, medicaments and biological substances; Z79.899 Other long term (current) drug therapy; X58.XXXA Exposure to other specified factors, initial encounter; Y93.89 Activity, other specified; Y92.89 Other specified places as the place of occurrence of the external cause; Y99.8 Other external cause status
CPT/HCPCS: 36415; 71045; 80053; 80307; 81003; 81025; 82009; 82550; 83605; 84484; 85025; 85610; 85730; 93005; 99285; G0482

== ENCOUNTER 2020-12-07 15:53 | Emergency (ER) | payer MEDICAID ==
[~2020-12-07] VITALS: Ht 177.8 cm; Wt 49.9 kg
[2020-12-07 16:25] VITALS: BP_SYST 102
--- NOTE | 2020-12-07 16:30 | NUR ---
Patient to lobby for evaluation. Side rails up.
--- NOTE | 2020-12-07 16:35 | NUR ---
ER examining patient.
--- NOTE | 2020-12-07 16:40 | NUR ---
Pt has no acute distress no medical complaint
--- NOTE | 2020-12-07 16:55 | NUR ---
pt given food and hydration.pt tolerated well.
[2020-12-07 17:00] VITALS: BP_SYST 108
[2020-12-07] MEDS ORDERED: IBUPROFEN 600 MG TABLET PO ONE (17:00)
--- NOTE | 2020-12-07 17:00 | NUR ---
Patient given written and verbal discharge instructions and verbalizes understanding. ER MD discussed with patient the results and treatment provided. Patient in stable condition. ID arm band removed. no Rx of given. Patient educated on pain management and to follow up with PMD. Pain Scale 0. Opportunity for questions provided and answered. Medication side effect fact sheet provided.
== END 2020-12-07 17:00 | disposition home or self-care (01) ==
LOC: SED 15:53
DX: T73.0XXA Starvation, initial encounter (principal); R63.1 Polydipsia; G89.29 Other chronic pain; F31.9 Bipolar disorder, unspecified; F20.9 Schizophrenia, unspecified; Z79.899 Other long term (current) drug therapy
CPT/HCPCS: 99281

== ENCOUNTER 2020-12-23 01:06 | Emergency (ER) | payer MEDICAID ==
[~2020-12-23] VITALS: Ht 167.6 cm; Wt 40.8 kg
[2020-12-23 01:12] VITALS: BP_SYST 130
[2020-12-23 03:06] LABS: BILIRUBIN,URINE NEGATIVE (NEGATIVE); BLOOD, URINE 3+ (NEGATIVE); CLARITY/URINE CLEAR (CLEAR); COLOR,URINE YELLOW (YELLOW); GLUCOSE,URINE NEGATIVE (NEGATIVE); KETONES,URINE NEGATIVE (NEGATIVE); LEUKOCYTE ESTERASE ,URINE NEGATIVE (NEGATIVE); NITRITE, URINE NEGATIVE (NEGATIVE); PROTEIN URINE 1+ (NEGATIVE); UROBILINOGEN,URINE 0.2 (0.2-1.0)
[2020-12-23 03:12] LABS: BACTERIA,URINE FEW /HPF (None Seen); RBC,URINE >100 /HPF (0-3); WBC,URINE 0-3 /HPF (0-3)
[2020-12-23 03:15] LABS: BASOPHILS # (AUTO) 0.1 K/uL (0.0-0.2); BASOPHILS % (AUTO) 0.8 % (0.0-2.0); EOSINOPHILS # (AUTO) 0.3 K/uL (0.0-0.4); EOSINOPHILS % (AUTO) 4.1 % (0.0-4.0); HEMATOCRIT 36.7 % (36-48); HEMOGLOBIN 12.4 g/dL (12.0-16.0); LYMPHOCYTES # (AUTO) 1.3 K/uL (1.0-5.5); LYMPHOCYTES % (AUTO) 20.2 % (20.5-51.5); MEAN CORPUSCULAR HEMOGLOBIN 31 pg (27-31); MEAN CORPUSCULAR HGB CONC 34 % (32-36); MEAN CORPUSCULAR VOLUME 91 fL (79.0-98.0); MONOCYTES # (AUTO) 0.5 K/uL (0.0-1.0); MONOCYTES % (AUTO) 7.4 % (1.7-9.3); NEUTROPHILS # (AUTO) 4.5 K/uL (1.8-7.7); NEUTROPHILS % (AUTO) 67.5 % (40.0-70.0); PLATELET COUNT (AUTO) 292 K/uL (130-430); RED BLOOD CELL COUNT(AUTO) 4.05 MIL/uL (4.2-6.2); RED CELL DISTRIBUTION WIDTH 12.5 % (9.0-15.0); WHITE BLOOD COUNT (AUTO) 6.7 K/uL (4.8-10.8)
[2020-12-23 03:30] LABS: CREATININE 0.57 mg/dL (0.55-1.30); POTASSIUM 3.1 mmol/L (3.5-5.1)
[2020-12-23 03:35] LABS: ALBUMIN 3.4 g/dL (3.4-4.8); TOTAL BILIRUBIN 0.2 mg/dL (0.0-1.0)
[2020-12-23 05:25] VITALS: BP_SYST 99
== END 2020-12-23 05:25 | disposition home or self-care (01) ==
LOC: SED 01:06
DX: T43.591A Poisoning by other antipsychotics and neuroleptics, accidental (unintentional), initial encounter (principal); R00.0 Tachycardia, unspecified; Y92.89 Other specified places as the place of occurrence of the external cause
CPT/HCPCS: 36415; 80053; 81000; 85025; 93005; 99284

== ENCOUNTER 2021-01-03 05:59 | Emergency (ER) | payer MEDICAID ==
[~2021-01-03] VITALS: Ht 160 cm; Wt 45.4 kg
[2021-01-03 06:05] VITALS: BP_SYST 97
[2021-01-03] MEDS ORDERED: KETOROLAC TROMETHAMINE 15 MG VIAL IM ONE (06:30)
[2021-01-03] MEDS ORDERED: ONDANSETRON 4 MG ODT TAB PO ONE (06:30)
[2021-01-03 07:32] VITALS: BP_SYST 97
[2021-01-03] MEDS ORDERED: NEU300 PO (07:35)
== END 2021-01-03 07:32 | disposition home or self-care (01) ==
LOC: SED 05:59
DX: R53.1 Weakness (principal); M79.18 Myalgia, other site; F31.9 Bipolar disorder, unspecified; F20.9 Schizophrenia, unspecified; Z88.8 Allergy status to other drugs, medicaments and biological substances; Z79.899 Other long term (current) drug therapy
CPT/HCPCS: 96372; 99283; J1885; Q0162

== ENCOUNTER 2021-01-10 10:21 | Emergency (ER) | payer MEDICAID ==
[~2021-01-10] VITALS: Ht 165.1 cm; Wt 43.1 kg
[2021-01-10 10:21] VITALS: BP_SYST 143
--- NOTE | 2021-01-10 10:21 | NUR ---
Patient to ER bed h1 to gown for evaluation. Side rails up. Report given to David SANFORD.
--- NOTE | 2021-01-10 10:25 | NUR ---
Pt came to ER via [employer] for OK to book. Law enforcement at bedside, pt has no complaints, VSS awaiting MD
--- NOTE | 2021-01-10 10:25 | NUR ---
ER at bedside examining patient.
--- NOTE | 2021-01-10 10:30 | NUR ---
Patient given written and verbal discharge instructions and verbalizes understanding. ER MD discussed with patient the results and treatment provided. Patient in stable condition. ID arm band removed. No Rx given. Patient educated on pain management and to follow up with PMD. Pain Scale 0/10. Opportunity for questions provided and answered. Medication side effect fact sheet provided.
[2021-01-10 10:39] VITALS: BP_SYST 143
== END 2021-01-10 10:39 ==
LOC: SED 10:21
DX: Z02.89 Encounter for other administrative examinations (principal); F31.9 Bipolar disorder, unspecified; F20.9 Schizophrenia, unspecified; Z88.8 Allergy status to other drugs, medicaments and biological substances; Z79.899 Other long term (current) drug therapy
CPT/HCPCS: 99283

== ENCOUNTER 2021-01-28 06:18 | Emergency (ER) | payer MEDICAID ==
[~2021-01-28] VITALS: Ht 167.6 cm; Wt 45.4 kg
[2021-01-28 06:22] VITALS: BP_SYST 122
[2021-01-28] MEDS ORDERED: NEU300 PO (06:51)
[2021-01-28] MEDS: GABAPENTIN 100 MG CAPSULE PO ONE (06:51)
[2021-01-28] MEDS: IBUPROFEN 600 MG TABLET PO ONE (06:51)
[2021-01-28] MEDS ORDERED: TRAZ-250 PO (06:51)
[2021-01-28] MEDS ORDERED: IBUP-1969 PO (06:51)
[2021-01-28 07:23] VITALS: BP_SYST 122
== END 2021-01-28 07:23 | disposition home or self-care (01) ==
LOC: SED 06:18
DX: M79.18 Myalgia, other site (principal); G47.00 Insomnia, unspecified; F31.9 Bipolar disorder, unspecified; F20.9 Schizophrenia, unspecified; Z88.8 Allergy status to other drugs, medicaments and biological substances; Z79.899 Other long term (current) drug therapy
CPT/HCPCS: 99283

== ENCOUNTER 2021-01-30 01:19 | Emergency (ER) | payer MEDICAID ==
[~2021-01-30] VITALS: Ht 167.6 cm; Wt 45.4 kg
[~2021-01-30 01:19] MED LIST changes: +IBUP-1969 PO; +TRAZ-250 PO
[2021-01-30 01:20] VITALS: BP_SYST 120
--- NOTE | 2021-01-30 01:20 | NUR ---
Patient to ER bed 5 to gown for evaluation. Side rails up.
--- NOTE | 2021-01-30 01:35 | NUR ---
ER at bedside examining patient.
--- NOTE | 2021-01-30 01:40 | NUR ---
Pt bib ambulance with complaint of "nervous system being all wacked out". Pt reports being off of psychiatric medications X5days. Pt reports back pain 6/10 Xtoday. Pt resting in gurney talking to herslef. Pt does not endorse thoughts of harm to self or others.
[2021-01-30] MEDS ORDERED: ONDANSETRON 4 MG ODT TAB PO ONE (01:45)
[2021-01-30] MEDS ORDERED: KETOROLAC TROMETHAMINE 60 MG/2 ML VIAL IM ONE (01:45)
[2021-01-30] MEDS ORDERED: ONDA4TAB5 PO (02:00)
--- NOTE | 2021-01-30 02:30 | NUR ---
Patient given turkey sandwich, apple sauce, and apple juice prior to discharge.
[2021-01-30 02:32] VITALS: BP_SYST 126
--- NOTE | 2021-01-30 02:32 | NUR ---
Patient given written and verbal discharge instructions and verbalizes understanding. ER MD discussed with patient the results and treatment provided. Patient in stable condition. ID arm band removed. Rx of ZOFRAN given. Patient educated on pain management and to follow up with PMD. Pain Scale 0/10. Opportunity for questions provided and answered. Medication side effect fact sheet provided.
== END 2021-01-30 02:32 | disposition home or self-care (01) ==
LOC: SED 01:19
DX: R11.2 Nausea with vomiting, unspecified (principal); M79.18 Myalgia, other site; F31.9 Bipolar disorder, unspecified; F20.9 Schizophrenia, unspecified; Z88.8 Allergy status to other drugs, medicaments and biological substances; Z79.899 Other long term (current) drug therapy
CPT/HCPCS: 81002; 81025; 96372; 99283; J1885; Q0162

== ENCOUNTER 2021-02-27 13:22 | Emergency (ER) | payer MEDICAID ==
[~2021-02-27] VITALS: Ht 167.6 cm; Wt 45.4 kg
[~2021-02-27 13:22] MED LIST changes: +ONDA4TAB5 PO
--- NOTE | 2021-02-27 13:30 | NUR ---
Patient triaged and placed in waiting room. VSS and patient appears in no acute distress at this time. Accompanied by self , awaiting available bed, and MD notified of need for MSE.
--- NOTE | 2021-02-27 13:32 | NUR ---
Pt brought by self, A&Ox4, pt presents to ER with pain and burning with urination x 3 days, pt afebrile, skin pink and warm, cap refill <3, VSS.
[2021-02-27 13:39] VITALS: BP_SYST 112
[2021-02-27 13:46] LABS: BILIRUBIN,URINE NEGATIVE (NEGATIVE); BLOOD, URINE NEGATIVE (NEGATIVE); CLARITY/URINE CLEAR (CLEAR); COLOR,URINE YELLOW (YELLOW); GLUCOSE,URINE NEGATIVE (NEGATIVE); KETONES,URINE NEGATIVE (NEGATIVE); LEUKOCYTE ESTERASE ,URINE NEGATIVE (NEGATIVE); NITRITE, URINE NEGATIVE (NEGATIVE); PH,URINE 7.5 (5.0-8.0); PROTEIN URINE NEGATIVE (NEGATIVE); UROBILINOGEN,URINE 0.2 (0.2-1.0)
--- NOTE | 2021-02-27 15:07 | NUR ---
Patient left without being seen.
== END 2021-02-27 15:07 | disposition left against medical advice (07) ==
LOC: SED 13:22
DX: R30.0 Dysuria (principal); F31.9 Bipolar disorder, unspecified; F20.9 Schizophrenia, unspecified; Z88.8 Allergy status to other drugs, medicaments and biological substances; Z79.899 Other long term (current) drug therapy
CPT/HCPCS: 81003; 81025; 99283